=== PATIENT | male | born 1985 | race Caucasian/White ===

== ENCOUNTER 2016-11-08 10:28 | Emergency (ER) | payer OTHER ==
[~2016-11-08] VITALS: Ht 170.2 cm; Wt 65.8 kg
[2016-11-08 12:04] LABS: ABSOLUTE BASOPHIL COUNT 0.1 /CUMM (0.0-0.2); ABSOLUTE EOSINOPHIL COUNT 0.1 /CUMM (0.0-0.7); ABSOLUTE GRANULOCYTE CT 8.2 /CUMM (1.4-6.5); ABSOLUTE MONOCYTE COUNT 0.9 /CUMM (0.10-0.60); BASOPHIL % 0.5 % (0.0-2.0); EOSINOPHIL % 0.7 % (0-5); HEMATOCRIT 40.6 % (42-52); MEAN CORPUSCULAR HGB 29.1 PG (27.0-31.0); MEAN CORPUSCULAR HGB CONC 33.7 G/DL (33.0-37.0); MEAN CORPUSCULAR VOLUME 86.5 FL (80.0-94.0); MEAN PLATELET VOLUME 7.5 FL (7.4-10.4); PLATELET COUNT 286 /CUMM (130-400); RBC DISTRIBUTION WIDTH 12.7 % (11.5-14.5); RED BLOOD CELL CT 4.69 /CUMM (4.70-6.10); WHITE BLOOD CELL COUNT 11.3 /CUMM (4.8-10.8)
--- NOTE | 2016-11-08 12:22 | RADIOLOGY REPORT ---
EXAMINATION: XR CHEST CLINICAL INFORMATION: Left upper quadrant pain with radiation to shoulder. Guarding. Evaluate for free air. COMPARISON: None TECHNIQUE: PA and lateral views of the chest are obtained. FINDINGS: The heart is normal in size. The lungs are clear. There is no free air. There is a mild right convex thoracic scoliosis. The bony thorax is otherwise unremarkable. IMPRESSION: No acute cardiopulmonary process. No free air.
--- NOTE | 2016-11-08 14:03 | CT SCAN REPORT ---
EXAMINATION: CT ABDOMEN AND PELVIS WITH CONTRAST CLINICAL INFORMATION: Left upper quadrant abdominal pain. Guarding. Evaluate for splenic infarct. COMPARISON: No relevant prior imaging available. TECHNIQUE: Multidetector volumetric imaging was performed of the abdomen and pelvis before and after the IV administration of 94 mL of Optiray 320 intravenous contrast. Sagittal and coronal reformatted images were obtained on the technologist's workstation. DLP: 271.85 mGy-cm FINDINGS: LUNG BASES: Lung bases are clear. There is no pleural or pericardial effusion. LIVER, GALLBLADDER, AND BILIARY TREE: The liver is normal in size, shape, and attenuation. No focal hepatic lesion or biliary ductal dilatation is present. The gallbladder is unremarkable with no evidence of radiopaque gallstones, gallbladder wall thickening, or obvious pericholecystic inflammatory changes. PANCREAS: Unremarkable. SPLEEN: Unremarkable. ADRENAL GLANDS: Unremarkable. KIDNEYS AND URETERS: The kidneys are normal in size, shape, and attenuation. No hydronephrosis, hydroureter, or calculi seen. No perinephric stranding. BLADDER: Unremarkable. GASTROINTESTINAL TRACT: There is a focus of ill-defined inflammatory changes within the left upper quadrant in the expected location of the greater omentum. A small rounded focus of increased attenuation is visualized within the area of inflammatory changes at measures approximately 1.1 cm in maximal transaxial dimension for instance best illustrated on axial image 29 of 93 series 2. The nearby colon appears normal with no evidence of acute diverticulitis. There is no free intraperitoneal air. A small volume of fluid layers within the pelvis. The stomach and small bowel are unremarkable. The appendix is normal. There is no abnormal perirectal or presacral inflation. There are scattered nonspecific mesenteric and retroperitoneal lymph nodes none of which illustrate worrisome features such as central necrosis. ABDOMINAL WALL: The abdominal wall is intact. VASCULAR: The abdominal aorta and inferior vena cava are unremarkable. PELVIC VISCERA: Unremarkable. OSSEOUS STRUCTURES: There is no worrisome lytic or blastic osseous lesion. IMPRESSION: There are ill-defined inflammatory changes within the left upper quadrant that appear to involve the greater omentum. A small rounded focus of increased attenuation is visualized within the area of inflammatory changes measuring approximately 1.1 cm in maximal transaxial dimension. Diagnostic considerations include an infarcted splenule or an omental infarct with associated adenitis. There are no abnormal inflammatory changes involving the adjacent colon to suggest acute diverticulitis. A small volume of simple fluid layers within the pelvis. No free intraperitoneal air.
--- NOTE | 2016-11-08 14:44 | ED GI/GU/ABDOMINAL COMPLAINT ---
History of Present Illness General Chief Complaint: Abdominal Pain/Flank Pain Stated Complaint: (L) SIDED FLANK PAIN Source: patient, family Exam Limitations: no limitations Vital Signs & Intake/Output Vital Signs & Intake/Output Vital Signs Date Time Temp Pulse Resp B/P Pulse O2 O2 Flow FiO2 Ox Delivery Rate 11/08 1724 98.1 79 15 112/74 100 Room Air 11/08 1551 74 16 113/57 99 Room Air 11/08 1355 98.6 76 18 134/84 98 Room Air ED Intake and Output 11/09 0000 11/08 1200 Intake Total 60 Output Total Balance 60 Intake, Oral 60 Patient 145 lb Weight Allergies Coded Allergies: poison rosa isela extract (RASH, HIVES 11/08/16) Reconcile Medications Multivitamin (Multi-Day Vitamins) 1 EACH TABLET 1 TAB PO DAILY SUPPLEMENT ( Reported) Oxycodone HCl/Acetaminophen (Percocet 5-325 MG Tablet) 5 MG-325 MG TABLET 1 TAB PO TID PRN abd pain Triage Note: C/O LUQ ABDOMINAL PAIN RADIATING TO LEFT CHEST, SHOULDER AND BACK X 3 DAYS. UNABLE TO LAY ON LEFT SIDE. ALSO C/O LOSS OF APPETIE. RAYMUNDO SOB OR DIZZINESS. Triage Nurses Notes Reviewed? yes HPI: Mr. Bynum is a 31-year-old male with no significant past medical history presenting to the emergency department for left upper quadrant pain. Patient states he noted the pain began on Monday evening but was quite mild. By Monday, the pain had increased a little bit. Over the past 2 days, the pain has been worsening with radiation to the left shoulder as well as left back. Patient also endorses nausea and decreased appetite. No vomiting or diarrhea. He is unable to describe the pain quality. Patient states when he takes a big breath in, the pain radiates quite severely to the left shoulder. He denies fever, chills, vomiting or diarrhea, no contacts, shortness of breath or cough. adds that she feels that he is quite pale compared to his normal skin coloration. (KEITH ELENA,MAYRA) Past History Travel History Traveled to [place] past 21 day No Medical History Any Pertinent Medical History? see below for history Neurological: NONE EENT: NONE Cardiovascular: NONE Respiratory: NONE Gastrointestinal: NONE Hepatic: NONE Renal: NONE Musculoskeletal: NONE Psychiatric: NONE Endocrine: NONE Surgical History Surgical History: none Psychosocial History What is your primary language Occitan Tobacco Use: Never used Family History Comment: Uncle Familia at age 40 from sudden PA versus DVT/PE Hx Contributory? Yes (MAYRA PARKER MD) Review of Systems Review of Systems Constitutional: Reports: see HPI. Denies: no symptoms. Comments Review of systems: See HPI, All other systems negative. Constitutional, no chills no fever, no malaise no weight loss HEENT: No visual changes no sore throat no congestion, no ear pain Cardiovascular: No chest pain , no palpitation , no orthopnea no ankle swelling Skin, no jaundice no rashes, no change in skin Respiratory: No dyspnea no cough no sputum no hemoptysis GI: +nausea, no vomiting, no diarrhea, no bloating/constipation : No dysuria No hematuria, no frequency, no discharge Muscle skeletal: No joint pain, no joint swelling, no back pain, no neck pain, Neurologic: No numbness no confusion, no headache Psych: No stress no anxiety no depression,. Heme/endocrine: No bruising no bleeding no polyuria no polydipsia Immunology: No lymphadenopathy, no splenectomy (MAYRA PARKER MD) Physical Exam Physical Exam Gastrointestinal: normal bowel sounds, soft, non-tender Comments: Well-developed well-nourished person in no acute distress HEENT: Normal EENT exam; PERRL, EOMI, no nystagmus. HEAD is atraumatic. moist mucous membranes. Neck: Supple, no lymphadenopathy, normal range of motion without pain or tenderness Back: Nontender, no CVA tenderness. Full range of motion Cardiovascular: Regular rate and rhythms no murmurs rubs or gallops, normal JVP Respiratory: Chest nontender.There were no bony deformities, no asymmetry. No respiratory distress. Patient speaking in full complete sentences. Breath sounds clear to auscultation bilaterally: NO W/R/R Abdomen: +LUQ, +guarding. Soft, nondistended, no appreciable organomegaly. Normal bowel sounds. No rebound. No appreciable enlargement of the abdominal aorta, No ascites. Extremity: No edema, full range of motion of extremities, normal and equal pulses bilaterally, 5 out of 5 strength noted to bilateral upper and lower extremities Neuro: Alert oriented x3, motor sensory normal, cranial nerves II through XII grossly intact. There were no obvious focal neurologic abnormalities. Skin: No appreciable rash on exposed skin, skin is warm and dry. Psych: Mood and affect is normal, memory and judgment is normal. Core Measures ACS in differential dx? No Severe Sepsis Present: No Septic Shock Present: No (KEITH ELENA,MAYRA) Progress Differential Diagnosis: diverticulitis, inflamm bowel dis, pancreatitis, perforated viscous, SBO, splenic infarct, free air Plan of Care: Orders Procedure Date/time Status Add-on Test (ER Only) 11/08 1521 Active Add-on Test (ER Only) 11/08 1444 Active PROTHROMBIN TIME 11/08 1142 Complete LIPASE 11/08 1142 Complete Laboratory Tests 11/08/16 1427: Lactic Acid Cancelled 11/08/16 1345: Urine Color YEL, Urine Clarity CLEAR, Urine pH 6.0, Ur Specific [place] <= 1.005 , Urine Protein NEG, Urine Ketones NEG, Urine Nitrite NEG, Urine Bilirubin NEG, Urine Urobilinogen 0.2, Ur Leukocyte Esterase NEG, Ur Microscopic EXAM NOT REQUIRED, Urine Hemoglobin NEG, Urine Glucose NEG Patient is generally well-appearing with no significant past medical history. He is focal left upper quadrant tenderness on exam with voluntary guarding. Given clinical history of radiation of pain to the left shoulder as well as back most likely this is either free air under the diaphragm with irritation of the diaphragm and referral pain to left shoulder or splenic pathology. X-ray is otherwise unremarkable for free air. Will CT to assess for splenic pathology. Patient offered IV pain medication and declined. States that the pain is tolerable. We'll give IV saline for bolus. CT shows increased attenuation in the left upper quadrant and an area of 1.1 cm. Possible splenule vs omental infarction. Discussed with general surgery (Dr. Peña) who does not believe there is any acute pathology ongoing. No indication for admission. He stated that these tend to resolve on their own. Discussed with hospitalist for possible admission and evaluation of coagulopathy. Hospitalist would like vascular physician to be consult for possible splenic infarct. Discussed w/ Dr. Valero, vascular. Does not believe there is any vascular pathology in terms of splenic bloodflow. From a vascular perspective, the patient is otherwise stable and can be discharged for outpatient management. Discussed again with hospitalist. No current indication for admission as the patient is not requiring IV medications for pain control for her surgical evaluation. Discussed at length with patient as well as Dr. Aquino. Patient feels comfortable to go home and is reliable to follow up with his primary care doctor. Printed out the report of the CT scan for him to take with him to his primary care doctor. (MAYRA PARKER MD) Diagnostic Imaging: Viewed by Me: Radiology Read, CT Scan. Discussed w/RAD: Radiology Read, CT Scan. Radiology Impression: There are ill-defined inflammatory changes within the left upper quadrant that appear to involve the greater omentum. A small rounded focus of increased attenuation is visualized within the area of inflammatory changes measuring approximately 1.1 cm in maximal transaxial dimension. Diagnostic considerations include an infarcted splenule or an omental infarct with associated adenitis. There are no abnormal inflammatory changes involving the adjacent colon to suggest acute diverticulitis. A small volume of simple fluid layers within the pelvis. No free intraperitoneal air. CXR Impression: no acute abnormality (negative chest x-ray.), no free air under diaphragm. Initial ED EKG: normal axis, none, normal intervals, normal p-waves, normal QRS complex, normal sinus rhythm (MAYRA PARKER MD) Departure Departure Time of Disposition: 1710 Disposition: HOME OR SELF CARE Condition: Stable Clinical Impression Primary Impression: LUQ abdominal pain Secondary Impressions: Omental infarction Referrals: BRIAN ROMO DO (PCP/Family) Additional Instructions: Please follow-up with your primary care doctor in 1-2 days for further evaluation of this pain. Likely you will need an outpatient evaluation to better characterize why this occurred. If you have any worsening pain, or unable to keep down food or drink, develop a fever, or anything else concerning please return to the emergency department immediately for further evaluation Departure Forms: Customer Survey General Discharge Information Prescriptions: Current Visit Scripts Oxycodone HCl/Acetaminophen (Percocet 5-325 MG Tablet) 1 TAB PO TID PRN abd pain #15 TAB (MAYRA PARKER MD) Resident Co-Sign Statement Statement: ED Attending supervision documentation- [x] I saw and evaluated the patient. I have also reviewed all the pertinent lab results and diagnostic results. I agree with the findings and the plan of care as documented in the Resident's documentation. [] I have reviewed the ED Record and agree with the Resident's documentation. [] Additions or exceptions (if any) to the Resident's note and plan are summarized below: [] I have seen and personally examined the patient and I agree with the above documentation. He had minimal left upper quadrant abdominal tenderness. I spoke with the on-call surgeon Dr. Peña who reviewed the CAT scan personally, we are agreement with the outpatient plan. The patient likely has focal ischemic omentum. The patient will return if worse or follow up with Dr Peña this week. He required no pain medication in the ED. Vascular surgery was also contacted and is agreement with the plan. (ELIEL AQUINO DO)
[2016-11-08] MEDS ORDERED: MULTI-DAY VITA1 EACH PO (14:52)
[2016-11-08] MEDS ORDERED: PERCOCET 5-3251 EACH PO (17:14)
[2016-11-08 17:24] VITALS: BP 112/74
== END 2016-11-08 17:29 ==
LOC: ERH 10:28
PROVIDERS: Emergency Medicine
DX: K55.069 Acute infarction of intestine, part and extent unspecified (principal)
CPT/HCPCS: 74177; 81003; 93005; 93010; 96360